=== PATIENT | male | born 1950 | race Caucasian/White ===

== ENCOUNTER → 2016-11-20 | Day surgery (SDC) | payer OTHER, MEDICARE ==
[2016-11-12 10:30] VITALS: Ht 194.3 cm; Wt 88.6 kg
[~2016-11-20] VITALS: Ht 194.3 cm; Wt 88.6 kg
[~2016-11-20] MED LIST: CALC650T4 PO; CODCAP4 PO; DIAZ-165 PO; DRGTP50 TOP; FENT50DI19 TD; IOPAMIDOL INJ 61% 15 ML VIAL ONE; LIDOCAINE HCL 1% MPF 5 ML VIAL ONE; MULT-506 PO; OXYC1TAB PO; POLY335019 PO; RXC30 PO; SODIUM CHLORIDE 0.9% INJ 10 ML VIAL ONE
--- NOTE | 2016-11-20 13:57 | History & Physical Bridge - [place] ---
H&P Re-Evaluation Bridge Note: I have examined the patient, reviewed the History & Physical and in the interval since the performance of the History & Physical I have noted the following changes of clinical significance: No changes noted
[2016-11-20 14:21] VITALS: TEMP 37
--- NOTE | 2016-11-20 14:29 | Discharge Instructions ---
Discharge Instructions Visit Reason for Visit: Sacral Radiculopathy Discharge Discharge Diagnosis / Problem: stenosis with leg pain Discharge Goals Goal(s): Decrease discomfort, Improve function Activity Recommendations Activity Limitations: resume your previous activity Anesthesia . Post Anesthesia Instructions: If you have had General Anesthesia or IV Sedation: * Do not drive today. * Resume driving when surgeon permits. * Do not make important decisions or sign legal documents today. * Call surgeon for: 1. Temperature elevations greater than 101 degrees F. 2. Uncontrollable pain. 3. Excessive bleeding. 4. Persistent nausea and vomiting. 5. Medication intolerance (nausea, vomiting or rash). * For nausea and vomiting use only clear liquids such as: tea, soda, bouillon until nausea subsides, then gradually increase diet as tolerated. * If you have any concerns or questions, call your surgeon's office. If physician is unavailable and it is an emergency, call 911 or go to the nearest emergency room. . Diet Recommendations Recommended Home Diet: resume previous diet Procedures Procedures Performed: Lumbar Epidural Steroid Injection Pending Studies Studies pending at discharge: no Medical Emergencies . Who to Call and When: Medical Emergencies: If at any time you feel your situation is an emergency, please call 911 immediately. . Non-Emergent Contact Non-Emergency issues call your: Specialist . . "Provider Documentation" section prepared by Eduin Short.
[2016-11-20 14:36] VITALS: BP 130/86; PULSE 62; O2SAT 99
--- NOTE | 2016-11-20 14:58 | OPERATIVE REPORT ---
DATE OF OPERATION: 11/20/2016 PREOPERATIVE DIAGNOSIS: Lumbar spinal stenosis with bilateral lower extremity radiculopathies. POSTOPERATIVE DIAGNOSIS: Same. PROCEDURE: Left paramedian L5-S1 interlaminar epidural steroid injection under fluoroscopic guidance. INDICATIONS: The patient is a 66-year-old white male who has received epidural injections in the past for radicular complaints related to multifactorial stenosis and he presents today for an epidural steroid injection to provide him with relief of stenosis and radicular complaints. CONSENT: Verbal and written consent was obtained from the patient. Risks and benefits were reviewed. Risks include but are not limited to epidural abscess, epidural hematoma, allergic reaction, dural puncture. The patient wishes to proceed. PROCEDURE IN DETAIL: The patient was taken back to the special procedures room of [facility] where he was maintained in a prone position. Backside was cleansed with Betadine x3 and a dry sterile dressing was placed on the overlying skin. Fluoroscope was used to identify the L5-S1 interlaminar space and the overlying skin was anesthetized with 4 mL of lidocaine 1% on the left side at L5-S1. A 22-gauge 3-1/2 inch Tuohy needle was then directed down towards the interlaminar space. It was advanced under lateral fluoroscopic guidance and loss of resistance was noted at a depth of 7 cm. Isovue-300 contrast 1 mL was injected in which demonstrated epidural uptake pattern which was confirmed with both AP and lateral views. He then underwent injection after negative aspiration of 40 mg of Depo-Medrol, 4 mL of preservative free sodium chloride. Injection was well tolerated and reproduced a familiar transient radicular sensation into the leg. DISPOSITION: 1. The patient is taken out into the discharge recovery area where he will be discharged home once discharge criteria have been met. 2. Follow up in the [facility] office in 2-4 weeks. I attest to the content of the Intraoperative Record and any orders documented therein. Any exceptio ns are noted below.
== END | disposition home or self-care (01) ==
LOC: X.SURG 12:49
PROVIDERS: ATTEND Physical Medicine & Rehabilitation
DX: M48.06 Spinal stenosis, lumbar region (principal); M54.16 Radiculopathy, lumbar region; M47.812 Spondylosis without myelopathy or radiculopathy, cervical region; M53.82 Other specified dorsopathies, cervical region; Z98.1 Arthrodesis status; Z88.8 Allergy status to other drugs, medicaments and biological substances

== ENCOUNTER → 2017-01-09 | Day surgery (SDC) | payer OTHER, MEDICARE ==
[2016-12-30 10:59] VITALS: Ht 194.3 cm; Wt 88.6 kg
[~2017-01-09] VITALS: Ht 194.3 cm; Wt 88.6 kg
[~2017-01-09] MED LIST changes: +CODCAP PO; -CODCAP4 PO; +DEXAMETHASONE SOD INJ 4 MG/ML VIAL ONE; +FENTANYL CITRATE INJ 50 MCG/1 ML 2 ML VIAL ONE; +LIDOCAINE HCL 2% 2 ML VIAL (20MG/ML) ONE; +MIDAZOLAM HCL 1 MG/ML 2ML VIAL ONE; +ONDANSETRON INJ 2 MG/ML 2 ML VIAL ONE; +PROPOFOL IV EMULSION 10 MG/ML 20 ML VIAL IV ONE
[2017-01-09 14:23] VITALS: TEMP 36.7
--- NOTE | 2017-01-09 14:26 | Discharge Instructions ---
Discharge Instructions Visit Reason for Visit: Lumbar Spinal Stenosis Discharge Discharge Diagnosis / Problem: low back pain Discharge Goals Goal(s): Decrease discomfort, Improve function Activity Recommendations Activity Limitations: resume your previous activity Anesthesia . Post Anesthesia Instructions: If you have had General Anesthesia or IV Sedation: * Do not drive today. * Resume driving when surgeon permits. * Do not make important decisions or sign legal documents today. * Call surgeon for: 1. Temperature elevations greater than 101 degrees F. 2. Uncontrollable pain. 3. Excessive bleeding. 4. Persistent nausea and vomiting. 5. Medication intolerance (nausea, vomiting or rash). * For nausea and vomiting use only clear liquids such as: tea, soda, bouillon until nausea subsides, then gradually increase diet as tolerated. * If you have any concerns or questions, call your surgeon's office. If physician is unavailable and it is an emergency, call 911 or go to the nearest emergency room. . Diet Recommendations Recommended Home Diet: resume previous diet Procedures Procedures Performed: Lumbar Epidural Steroid Injection Pending Studies Studies pending at discharge: no Medical Emergencies . Who to Call and When: Medical Emergencies: If at any time you feel your situation is an emergency, please call 911 immediately. . Non-Emergent Contact Non-Emergency issues call your: Specialist . . "Provider Documentation" section prepared by Eduin Short.
[2017-01-09 14:36] VITALS: BP 117/79; PULSE 76; O2SAT 99
--- NOTE | 2017-01-09 14:53 | OPERATIVE REPORT ---
DATE OF OPERATION: 01/09/2017 PREOPERATIVE DIAGNOSIS: L1-L2 disc protrusion with bilateral L1 radiculopathies. POSTOPERATIVE DIAGNOSES: Same. PROCEDURE: Right paramedian L1-L2 interlaminar epidural steroid injection under fluoroscopic guidance. INDICATIONS: The patient is a 66-year-old white male who had a wonderful response to an L5-S1 epidural injection. It relieved the foot and distal leg pain. He reports that that worked so well now he is describing pain that is consistent with a L1 radiculopathy. 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 PHYSICAL EXAMINATION: Pleasant male seated comfortably. He has some tenderness to palpation in the lower thoracic upper lumbar region. No focal weakness in the lower extremities with negative seated straight leg raises. CONSENT: Verbal and written consent was obtained from the patient. Risks and benefits were reviewed. Risks include but are not limited to epidural abscess, epidural hematoma, allergic reaction, dural puncture. The patient wishes to proceed. DESCRIPTION OF PROCEDURE: The patient was taken back to the special procedures room of the [facility] where he was maintained in a prone position. Backside was cleansed with Betadine x3 and a dry sterile dressing was applied. Fluoroscope was used to identify the L1-L2 interlaminar space. Overlying skin on the right side was anesthetized with 4 mL of lidocaine 1% with a 25 gauge 1.5-inch needle. A 22-gauge 3-1/2 inch Tuohy needle was then directed down towards the interlaminar space where loss of resistance was noted at a depth of 5 cm. Isovue-300 contrast 1 mL was injected in which demonstrated epidural uptake pattern which was confirmed with both AP and lateral views. He then underwent injection after negative aspiration of 40 mg of Depo-Medrol, 4 mL of preservative-free sodium chloride. Injection was well tolerated. DISPOSITION: 1. The patient is taken out into the discharge recovery area where he will be discharged home once discharge criteria have been met. 2. Follow up in the [facility] office in 2-4 weeks. I attest to the content of the Intraoperative Record and any orders documented therein. Any exceptio ns are noted below.
== END | disposition home or self-care (01) ==
LOC: X.SURG 13:26
PROVIDERS: ATTEND Physical Medicine & Rehabilitation
DX: M51.27 Other intervertebral disc displacement, lumbosacral region (principal); M54.16 Radiculopathy, lumbar region

== ENCOUNTER → 2017-06-17 | Outpatient (CLI) | payer OTHER, MEDICARE ==
[~2017-06-17] MED LIST changes: -DEXAMETHASONE SOD INJ 4 MG/ML VIAL ONE; -FENT50DI19 TD; -FENTANYL CITRATE INJ 50 MCG/1 ML 2 ML VIAL ONE; -IOPAMIDOL INJ 61% 15 ML VIAL ONE; -LIDOCAINE HCL 1% MPF 5 ML VIAL ONE; -LIDOCAINE HCL 2% 2 ML VIAL (20MG/ML) ONE; -MIDAZOLAM HCL 1 MG/ML 2ML VIAL ONE; -ONDANSETRON INJ 2 MG/ML 2 ML VIAL ONE; -OXYC1TAB PO; -PROPOFOL IV EMULSION 10 MG/ML 20 ML VIAL IV ONE; -SODIUM CHLORIDE 0.9% INJ 10 ML VIAL ONE
== END | disposition home or self-care (01) ==
LOC: C.LABPBG 13:59
PROVIDERS: ATTEND Internal Medicine Geriatric Medicine
DX: Z11.59 Encounter for screening for other viral diseases (principal)

== ENCOUNTER → 2017-12-05 | Outpatient (CLI) | payer OTHER, MEDICARE ==
[~2017-12-05] MED LIST changes: -CODCAP PO; +CODCAP4 PO
[2017-12-05 16:59] LABS: BASO % 1.1 %; BASO ABS # 0.09 K/uL (0-0.2); EOS % 4.1 %; EOS ABS # 0.33 K/uL (0-0.5); HEMATOCRIT 39.8 % (42-52); HEMOGLOBIN 13.6 g/dL (14.0-18.0); IG# 0.01 K/uL (0.00-0.02); LYMPH % 17.8 %; LYMPH ABS # 1.42 K/uL (1.2-3.4); MEAN CELL VOLUME 92.3 fL (80-100); MEAN CORPUSCULAR HEMOGLOBIN 31.6 pg (25-34); MEAN CORPUSCULAR HGB CONC 34.2 g/dl (32-36); MEAN PLATELET VOLUME 9.6 fL (7.4-10.4); MONO ABS # 0.64 K/uL (0.11-0.59); NEUT % 68.9 %; NEUT ABS # 5.48 K/uL (1.4-6.5); PLATELET COUNT 224 K/uL (130-400); RED CELL DISTRIBUTION WIDTH CV 14.2 % (11.5-14.5); WHITE BLOOD COUNT 7.97 K/uL (4.8-10.8)
[2017-12-05 17:17] LABS: ALBUMIN 3.8 gm/dl (3.4-5.0); ALT/SGPT 26 U/L (12-78); AST/SGOT 24 U/L (15-37); BLOOD UREA NITROGEN 22 mg/dl (7-18); CALCIUM 8.6 mg/dl (8.5-10.1); CARBON DIOXIDE 31 mmol/L (21-32); CREATININE 1.29 mg/dl (0.60-1.40); GLUCOSE 105 mg/dl (70-99); POTASSIUM 4.4 mmol/L (3.5-5.1); SODIUM 138 mmol/L (136-145)
[2017-12-05 17:28] LABS: ALKALINE PHOSPHATASE 95 U/L (45-117); TOTAL PROTEIN 7.3 gm/dl (6.4-8.2)
== END | disposition home or self-care (01) ==
LOC: C.LABPBG 13:51
PROVIDERS: ATTEND Physician Assistant
DX: G95.9 Disease of spinal cord, unspecified (principal); G89.29 Other chronic pain; R42 Dizziness and giddiness; T14.8XXA Other injury of unspecified body region, initial encounter; W57.XXXA Bitten or stung by nonvenomous insect and other nonvenomous arthropods, initial encounter

== ENCOUNTER → 2018-03-17 | Outpatient (CLI) | payer OTHER, MEDICARE ==
[2018-03-17 17:04] LABS: BASO % 0.4 %; BASO ABS # 0.03 K/uL (0-0.2); EOS % 2.9 %; EOS ABS # 0.25 K/uL (0-0.5); HEMATOCRIT 42.5 % (42-52); HEMOGLOBIN 14.8 g/dL (14.0-18.0); IG# 0.01 K/uL (0.00-0.02); LYMPH % 13.3 %; LYMPH ABS # 1.13 K/uL (1.2-3.4); MEAN CELL VOLUME 91.6 fL (80-100); MEAN CORPUSCULAR HEMOGLOBIN 31.9 pg (25-34); MEAN CORPUSCULAR HGB CONC 34.8 g/dl (32-36); MEAN PLATELET VOLUME 9.2 fL (7.4-10.4); MONO % 7.5 %; MONO ABS # 0.64 K/uL (0.11-0.59); NEUT % 75.8 %; NEUT ABS # 6.45 K/uL (1.4-6.5); PLATELET COUNT 231 K/uL (130-400); RED CELL DISTRIBUTION WIDTH CV 13.6 % (11.5-14.5); RED CELL DISTRIBUTION WIDTH SD 45.4 fL (36.4-46.3); WHITE BLOOD COUNT 8.51 K/uL (4.8-10.8)
[2018-03-17 17:25] LABS: ALBUMIN 3.6 gm/dl (3.4-5.0); ALT/SGPT 19 U/L (12-78); AST/SGOT 18 U/L (15-37); BLOOD UREA NITROGEN 17 mg/dl (7-18); CALCIUM 8.6 mg/dl (8.5-10.1); CARBON DIOXIDE 31 mmol/L (21-32); CREATININE 1.15 mg/dl (0.60-1.40); GLUCOSE 101 mg/dl (70-99); POTASSIUM 4.5 mmol/L (3.5-5.1); SODIUM 140 mmol/L (136-145)
[2018-03-17 17:36] LABS: ALKALINE PHOSPHATASE 102 U/L (45-117); TOTAL PROTEIN 7.3 gm/dl (6.4-8.2)
== END | disposition home or self-care (01) ==
LOC: C.LABPBG 15:52
PROVIDERS: ATTEND Internal Medicine Geriatric Medicine
DX: S14.105A Unspecified injury at C5 level of cervical spinal cord, initial encounter (principal); M54.10 Radiculopathy, site unspecified; D64.9 Anemia, unspecified; T14.8XXA Other injury of unspecified body region, initial encounter; W57.XXXA Bitten or stung by nonvenomous insect and other nonvenomous arthropods, initial encounter